=== PATIENT | female | born 1935 | race Caucasian/White ===

== ENCOUNTER 2019-04-20 19:22 | Emergency (ER) | payer MEDICARE ==
[~2019-04-20] VITALS: Ht 157 cm; Wt 54.0 kg
--- NOTE | 2019-04-20 19:34 | ED Lower Extremity ---
General Stated Complaint: FALL Source: patient, EMS Exam Limitations: no limitations History of Present Illness Date Seen by Provider: Apr 20, 2019 Time Seen by Provider: 19:25 Initial Comments The patient is a very pleasant 84-year-old female who presents for evaluation of left hip pain after a fall. She states that she tripped and fell while waiting for an elevator about 1-2 hrs ago. She states that she believes it is just strained and not broken. She arrives via EMS. She denies hitting her head or losing consciousness. She takes aspirin but no other blood thinners. She is alert, calm, and appears to be in no distress this time. Onset: this afternoon Severity: moderate Pain/Injury Location: left hip Method of Injury: fell Modifying Factors: Improves With Movement (makes it worse) Allergies and Home Medications Allergies Coded Allergies: No Known Allergies (Unverified Allergy, Mild, 07/01/05) Patient Home Medication List Home Medication List Reviewed: Yes Review of Systems Constitutional: no symptoms reported EENTM: no symptoms reported Respiratory: no symptoms reported Cardiovascular: no symptoms reported Gastrointestinal: no symptoms reported Genitourinary: no symptoms reported Musculoskeletal: joint pain (left hip) Skin: other (skin tear to left elbow) Psychiatric/Neurological: No Symptoms Reported All Other Systems Reviewed Negative Unless Noted: Yes Past Rvklirt-Qvtbsr-Eovobo Hx Past Med/Social Hx: Reviewed Nursing Past Med/Soc Hx Physical Exam Vital Signs Vital Signs - First Documented 04/20/19 19:25 Temp 36.5 Pulse 68 Resp 16 B/P (MAP) 134/69 (90) Pulse Ox 98 O2 Delivery Room Air Capillary Refill : Height, Weight, BMI Height: '" Weight: lbs. oz. kg; BMI Method: General Appearance: WD/WN, no apparent distress HEENT: PERRL/EOMI, pharynx normal Neck: non-tender, full range of motion, normal inspection Cardiovascular: regular rate, rhythm, no edema, no JVD Respiratory: lungs clear, normal breath sounds, no respiratory distress, no accessory muscle use Gastrointestinal: normal bowel sounds, non tender, soft Back: normal inspection, no vertebral tenderness Hips: right hip non-tender, right hip normal inspection, right hip normal range of motion; left hip limited range of motion (patient is able to lift the left leg off the bed and hold it there briefly), left hip soft tissue tenderness (left lateral hip) Knees: bilateral knee non-tender, bilateral knee normal inspection, bilateral knee normal range of motion Ankles: bilateral ankle non-tender, bilateral ankle normal inspection, bilateral ankle normal range of motion Neurologic/Psychiatric: interventional radiology tech II-XII nml as tested, alert, normal mood/affect, oriented x 3 Skin: normal color, warm/dry, other (mild skin tear to left elbow) Progress/Results/Core Measures Results/Orders My Orders Orders - MEENAKSHI SANTANA DO Pelvis With Left Hip 2-3 View (04/20/19 19:28) Dipht,Pertuss(Acell),Tet Adult (Boostrix (04/20/19 20:00) Vital Signs/I&O 04/20/19 19:25 Temp 36.5 Pulse 68 Resp 16 B/P (MAP) 134/69 (90) Pulse Ox 98 O2 Delivery Room Air Progress Progress Note : Progress Note @1999 - Patient updated on imaging results which are unremarkable. The patient states she is feeling better and is asking to go home. Advised the patient to follow up with her PCP in the next 1-2 days. Workup today fails to reveal any emergent pathology in the patient is stable for discharge home. Diagnostic Imaging Diagonstic Imaging: Xray Comments [facility]. POS [place], [place] POS NAME: ISIDORO BELTRAN [facility] REC#: [id number] PT STATUS: REG ER : 1935 PHYSICIAN: MEENAKSHI SANTANA DO ADMIT DATE: 04/20/19/ER FS Draft POSDate of Exam:04/20/19 PELVIS WITH LEFT HIP 2-3 VIEW EXAMINATION: Pelvis, single view. The left hip, 2 views. COMPARISON: None. HISTORY: 84-year-old female, fall. Back and left hip pain. FINDINGS: The pubic symphysis and sacroiliac joints are normally aligned. The right hip is not obviously dislocated. The left hip is not dislocated. There is no pronounced joint space loss of either hip. There is no identified acute fracture. There is lumbar levoscoliosis and advanced degenerative change of the lumbar spine. IMPRESSION: 1. No identified acute bony abnormality of the pelvis or left hip. Dictated on workstation # [id number] Dict: 04/20/191945 Trans: 04/20/191953 [facility] [id number] Interpreted by: ISMAEL COOLEY MD Electronically signed by: Departure Impression Primary Impression: Injury of left hip Disposition: HOME, SELF-CARE Condition: Stable Departure-Patient Inst. Decision time for Depature: 20:02 Referrals: AMBROSE BENNETT MD Patient Instructions: Hip Pain in Older People Add. Discharge Instructions: Take ibuprofen or Tylenol home for pain relief. Return to the Emergency Department immediately for new or worsening symptoms. Follow-up with your doctor or the orthopedic doctor provided in the next 1-2 days. MEENAKSHI SANTANA DO Apr 20, 2019 19:34 POS
--- NOTE | 2019-04-20 19:55 | Diagnostic Imaging Report ---
EXAMINATION: Pelvis, single view. The left hip, 2 views. COMPARISON: None. HISTORY: 84-year-old female, fall. Back and left hip pain. FINDINGS: The pubic symphysis and sacroiliac joints are normally aligned. The right hip is not obviously dislocated. The left hip is not dislocated. There is no pronounced joint space loss of either hip. There is no identified acute fracture. There is lumbar levoscoliosis and advanced degenerative change of the lumbar spine. IMPRESSION: 1. No identified acute bony abnormality of the pelvis or left hip. Dictated by: Dictated on workstation # [id number]
[2019-04-20] MEDS ORDERED: TETANUS,DIPTH,PERTUSS P/F (BOOSTRIX) 0.5 ML VIAL IM ONE (20:00)
[2019-04-20 21:15] VITALS: BP 127/65
== END 2019-04-20 21:15 | disposition home or self-care (01) ==
LOC: EDUNIT# 19:22 → ER FS 19:23
DX: S79.912A Unspecified injury of left hip, initial encounter (principal); W01.0XXA Fall on same level from slipping, tripping and stumbling without subsequent striking against object, initial encounter
CPT/HCPCS: 73502; 90471; 90715

== ENCOUNTER → 2020-02-24 | Outpatient (CLI) | payer MEDICARE ==
--- NOTE | 2020-02-24 16:27 | Diagnostic Imaging Report ---
EXAMINATION: Right hand radiographs, single view. Right thumb, 2 additional views. COMPARISON: None. HISTORY: 84-year-old female, fall. FINDINGS: There is an oblique mildly comminuted displaced fracture of the first proximal phalanx without definite intra-articular fracture extension. There is no identified offset of the articulating surface of the base of the first proximal phalanx. There is no identified radiopaque foreign body. There is subluxation at the second metacarpophalangeal joint. There is severe joint space loss of the second and third metacarpophalangeal joints. There is chondrocalcinosis. There is no particularly prominent osteophyte formation. There is no bone erosion. IMPRESSION: 1. Mildly comminuted displaced fracture of the first proximal phalanx without definite intra-articular fracture extension. 2. 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 Dictated by: Dictated on workstation # [id number]
== END ==
LOC: RAD FS 15:12
PROVIDERS: ATTEND Family Medicine
DX: S62.511A Displaced fracture of proximal phalanx of right thumb, initial encounter for closed fracture (principal); S63.210A Subluxation of metacarpophalangeal joint of right index finger, initial encounter; M19.041 Primary osteoarthritis, right hand; X58.XXXA Exposure to other specified factors, initial encounter
CPT/HCPCS: 73140

== ENCOUNTER 2020-02-25 15:09 | Emergency (ER) | payer MEDICARE ==
[~2020-02-25] VITALS: Ht 160 cm; Wt 56.7 kg
[2020-02-25 15:17] VITALS: BP 128/78
--- NOTE | 2020-02-25 15:22 | ED Upper Extremity ---
General Chief Complaint: Upper Extremity Stated Complaint: RT THUMB PAIN Source: patient Exam Limitations: no limitations History of Present Illness Date Seen by Provider: Feb 25, 2020 Time Seen by Provider: 15:10 Initial Comments The patient is a pleasant 84-year-old female who presents for evaluation of a right thumb injury. She is not exactly sure what happened to her thumb but believes that a week or 2 ago she fell and injured the thumb. She had outpatient x-rays performed yesterday which showed a mildly displaced thumb fracture. She has no other complaints and came here simply to have a splint put on the finger. She is not on any anticoagulants. She is alert and oriented 4, calm, and appears to be in no distress this time. She reports the pain as mild currently. Onset: last week Severity: moderate Pain/Injury Location: right thumb Method of Injury: fell Modifying Factors: Improves With Movement (makes it worse) Allergies and Home Medications Allergies Coded Allergies: No Known Allergies (Unverified Allergy, Mild, 07/01/05) Patient Home Medication List Home Medication List Reviewed: Yes Review of Systems Constitutional: no symptoms reported EENTM: no symptoms reported Respiratory: no symptoms reported Cardiovascular: no symptoms reported Gastrointestinal: no symptoms reported Genitourinary: no symptoms reported Musculoskeletal: joint pain (right thumb injury) Skin: no symptoms reported Psychiatric/Neurological: No Symptoms Reported All Other Systems Reviewed Negative Unless Noted: Yes Past Hqgfird-Fnsjti-Ukzukw Hx Past Med/Social Hx: Reviewed Nursing Past Med/Soc Hx Patient Social History 2nd Hand Smoke Exposure: No Recent Foreign Travel: No Contact w/Someone Who Travel: No Recent Hopitalizations: No Past Medical History Respiratory: No Cardiac: Yes High Cholesterol Neurological: Yes Dementia Genitourinary: No Gastrointestinal: No Musculoskeletal: No Endocrine: No HEENT: No Cancer: No Psychosocial: No Integumentary: No Blood Disorders: No Physical Exam Vital Signs Vital Signs - First Documented 02/25/20 15:17 Temp 36.7 Pulse 84 Resp 18 B/P (MAP) 128/78 (95) Pulse Ox 98 O2 Delivery Room Air Capillary Refill : Height, Weight, BMI Height: '" Weight: lbs. oz. kg; 21.00 BMI Method: General Appearance: WD/WN, no apparent distress HEENT: PERRL/EOMI, normal ENT inspection Neck: full range of motion, normal inspection Cardiovascular: regular rate, rhythm, no edema, no JVD Respiratory: lungs clear, normal breath sounds, no respiratory distress, no accessory muscle use Gastrointestinal: normal bowel sounds, non tender, soft, no pulsatile mass Back: no vertebral tenderness Shoulder: normal inspection, non-tender, no evidence of injury Elbow/Forearm: normal inspection, non-tender, no evidence of injury, normal ROM, Bilateral Wrist: Yes normal inspection, Yes non-tender, Yes no evidence of injury, Yes normal ROM Hand: bone tenderness (right thumb, no deformity noted, good cap refill, good distal sensation, no open wound), ecchymosis (right thumb) Neurologic/Tendon: normal sensation, normal motor functions, normal tendon functions, responds to pain Neurologic/Psychiatric: no motor/sensory deficits, alert, normal mood/affect, oriented x 3 Skin: normal color, warm/dry Progress/Results/Core Measures Results/Orders My Orders Orders - MEENAKSHI SANTANA DO Thumb Spika (02/25/20 15:31) Vital Signs/I&O 02/25/20 15:17 Temp 36.7 Pulse 84 Resp 18 B/P (MAP) 128/78 (95) Pulse Ox 98 O2 Delivery Room Air Progress Progress Note : Progress Note @1600 - x-ray reviewed showing mildly displaced proximal phalanx of the right hand. Thumb spica splint applied. Orthopedic follow-up given. Advised the patient to return to the emergency Department immediately for new or worsening symptoms. The patient stresses verbal understanding and agreement with plan and is stable for discharge. Diagnostic Imaging Diagonstic Imaging: Xray Comments [facility] [place], [place] NAME: ISIDORO BELTRAN [facility] REC#: [id number] PT STATUS: REG CLI : 1935 PHYSICIAN: MARK ANTHONY KULKARNI MD ADMIT DATE: 02/24/20/RAD FS Signed Date of Exam:02/24/20 FINGER(S) EXAMINATION: Right hand radiographs, single view. Right thumb, 2 additional views. COMPARISON: None. HISTORY: 84-year-old female, fall. FINDINGS: There is an oblique mildly comminuted displaced fracture of the first proximal phalanx without definite intra-articular fracture extension. There is no identified offset of the articulating surface of the base of the first proximal phalanx. There is no identified radiopaque foreign body. There is subluxation at the second metacarpophalangeal joint. There is severe joint space loss of the second and third metacarpophalangeal joints. There is chondrocalcinosis. There is no particularly prominent osteophyte formation. There is no bone erosion. IMPRESSION: 1. Mildly comminuted displaced fracture of the first proximal phalanx without definite intra-articular fracture extension. 2. 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 Dictated by: Dictated on workstation # [id number] Dict: 02/24/20 1615 Trans: 02/24/20 1633 CV [id number] Interpreted by: ISMAEL COOLEY MD Electronically signed by: ISMAEL COOLEY MD 02/24/20 1633 Departure Impression Primary Impression: Fracture of proximal phalanx of digit of right hand Disposition: HOME, SELF-CARE Condition: Stable Departure-Patient Inst. Decision time for Depature: 15:59 Referrals: AMBROSE BENNETT MD or Kory Bowie at [phone] (ortho) Patient Instructions: Finger Fracture Add. Discharge Instructions: Follow-up with Donald Bowie from orthopedics or Dr. Bennett orthopedics in the next 1-2 days. Return to the emergency Department immediately for new or worsening symptoms. Take Tylenol or ibuprofen for pain relief is needed and apply ice as needed. Wear the splint provided until you follow-up with orthopedics. MEENAKSHI SANTANA DO Feb 25, 2020 15:22
== END 2020-02-25 16:14 | disposition home or self-care (01) ==
LOC: EDUNIT# 15:09 → ER FS 15:11
DX: S62.511A Displaced fracture of proximal phalanx of right thumb, initial encounter for closed fracture (principal); W19.XXXA Unspecified fall, initial encounter
CPT/HCPCS: 99283

== ENCOUNTER → 2020-03-13 | Outpatient (CLI) | payer MEDICARE ==
--- NOTE | 2020-03-13 13:13 | Diagnostic Imaging Report ---
EXAMINATION: Right fingers at 11:41 AM. INDICATION: Thumb fracture. TECHNIQUE: A single AP view of the hand and two views of the 1st digit were obtained. FINDINGS: The prior exam of 02/24/2020 noted a mildly comminuted displaced fracture of the proximal phalanx of the thumb. That finding is again evident on this study. The main fracture fragments are similar in alignment to the prior study. There is little (if any) healing callus formation present, however. No other fracture or acute bony abnormality is appreciated. The degenerative changes involving the 1st metacarpophalangeal joint and the triscaphe joint seen previously are again evident and no different. Also, as on the prior exam, the osseous structures are demineralized. IMPRESSION: 1. The fracture of the base of the proximal phalanx seen previously is again evident. The main fracture fragments are essentially unchanged in alignment. There is little (if any) healing callus formation present. 2. There is no acute bony abnormality appreciated otherwise. Dictated by: Dictated on workstation # [id number]
== END ==
LOC: RAD FS 11:31
PROVIDERS: ATTEND Nurse Practitioner
DX: S62.511A Displaced fracture of proximal phalanx of right thumb, initial encounter for closed fracture (principal); X58.XXXA Exposure to other specified factors, initial encounter
CPT/HCPCS: 73140

== ENCOUNTER → 2020-04-03 | Outpatient (CLI) | payer MEDICARE ==
--- NOTE | 2020-04-03 12:31 | Diagnostic Imaging Report ---
INDICATION: Displaced fracture of proximal phalanx of right thumb. TECHNIQUE: Single view hand with two radiographs of right thumb, 10:23 AM. CORRELATION STUDY: 03/13/2020. FINDINGS: Demonstration of a comminuted displaced fracture involving the proximal phalanx of the thumb. Slight dorsal and radial displacement of the main distal fracture fragment is again demonstrated. The overall alignment is generally stable. There has been no appreciable interval healing of the fracture with the fracture line still well visualized. Alignment appears generally stable. Advanced degenerative changes through the interphalangeal joint of the thumb as well as through the remaining fingers. The distal phalangeal joint of the little finger is held in moderate flexure. Advanced degenerative change of the 1st carpometacarpal articulation. IMPRESSION: 1. Comminuted displaced fracture involving the proximal phalanx of the thumb. Alignment overall appears generally stable. There has been very little (if any) interval healing from prior study. Fracture line is still well visualized. Dictated by: Dictated on workstation # [id number]
== END ==
LOC: RAD FS 10:10
PROVIDERS: ATTEND Nurse Practitioner
DX: S62.511D Displaced fracture of proximal phalanx of right thumb, subsequent encounter for fracture with routine healing (principal); X58.XXXD Exposure to other specified factors, subsequent encounter
CPT/HCPCS: 73140

== ENCOUNTER → 2020-10-04 | Outpatient (CLI) | payer MEDICARE ==
[2020-10-04 10:03] LABS: COLOR,URINE YELLOW
[2020-10-04 10:04] LABS: BACTERIA,URINE NEGATIVE /HPF; BILIRUBIN,URINE NEGATIVE (NEGATIVE); CLARITY,URINE CLOUDY; GLUCOSE, URINE (UA) NEGATIVE (NEGATIVE); KETONES,URINE TRACE (NEGATIVE); LEUKOCYTE ESTERASE ,URINE NEGATIVE (NEGATIVE); NITRITE,URINE NEGATIVE (NEGATIVE); PH,URINE 6.5 (5-9); PROTEIN,URINE NEGATIVE (NEGATIVE); SQUAMOUS EPITHELIAL CELL,UR RARE /HPF
[2020-10-04 10:05] LABS: AMORPHOUS SEDIMENT,UR FEW AMOR URATES /LPF; CALCIUM OXALATE CRYSTALS,UR FEW /LPF; GRANULAR CASTS,URINE RARE /LPF
== END ==
LOC: PVFS 09:42
PROVIDERS: ATTEND Family Medicine
DX: R82.998 Other abnormal findings in urine (principal)
CPT/HCPCS: 81000

== ENCOUNTER → 2021-02-13 | Outpatient (CLI) | payer MEDICARE ==
[2021-02-13 17:56] LABS: BILIRUBIN,URINE NEGATIVE (NEGATIVE); CLARITY,URINE CLEAR; COLOR,URINE YELLOW; GLUCOSE, URINE (UA) NEGATIVE (NEGATIVE); KETONES,URINE NEGATIVE (NEGATIVE); LEUKOCYTE ESTERASE ,URINE NEGATIVE (NEGATIVE); NITRITE,URINE NEGATIVE (NEGATIVE); PROTEIN,URINE NEGATIVE (NEGATIVE)
[2021-02-13 18:05] LABS: BACTERIA,URINE NEGATIVE /HPF; RBC,URINE 0-2 /HPF; SQUAMOUS EPITHELIAL CELL,UR RARE /HPF; WBC,URINE RARE /HPF
== END ==
LOC: PVFS 17:29
PROVIDERS: ATTEND Family Medicine
DX: R39.9 Unspecified symptoms and signs involving the genitourinary system (principal); R44.3 Hallucinations, unspecified
CPT/HCPCS: 81000

== ENCOUNTER → 2021-04-25 | Outpatient (CLI) | payer MEDICARE ==
--- NOTE | 2021-04-25 13:35 | Diagnostic Imaging Report ---
INDICATION: Pain. Three views of the right ankle were obtained. FINDINGS: The bones are osteopenic. There are mild degenerative changes. The alignment is normal. The plafond and talar dome are intact. The ankle mortise is symmetric. There is no acute fracture or dislocation. The soft tissues are unremarkable. IMPRESSION: Osteopenia and degenerative change, otherwise unremarkable. Dictated by: Dictated on workstation # [id number]
== END ==
LOC: RAD FS 10:31
PROVIDERS: ATTEND Registered Nurse Emergency
DX: M19.071 Primary osteoarthritis, right ankle and foot (principal); M85.871 Other specified disorders of bone density and structure, right ankle and foot
CPT/HCPCS: 73610

== ENCOUNTER 2021-11-13 08:26 | Emergency (ER) | payer MEDICARE ==
[~2021-11-13] VITALS: Ht 160 cm; Wt 54.4 kg
[2021-11-13] MEDS ORDERED: PHENYLEPHRINE 0.25% NASAL SPR (NEO-SYNEPHRINE) 15 ML NS ONE (09:04)
--- NOTE | 2021-11-13 09:28 | ED EENT ---
History of Present Illness General Chief Complaint: Nasal Problems Stated Complaint: EPISTAXIS Nursing Triage Note: PT TO ROOM FS05 VIA [facility] WITH C/O NOSE BLEED. PT FACILITY PRESSURE WAS HELD FOR X25 MINUTES AND THE BLEEDING WOULD NOT STOP. Source: patient Exam Limitations: no limitations History of Present Illness Date Seen by Provider: Nov 13, 2021 Time Seen by Provider: 08:45 Initial Comments Patient is an 86-year-old female presents with spontaneous nosebleed starting prior to ED arrival. Patient was at facility that held pressure to the left nares for 25 minutes without nosebleed stopping prior to ED arrival. Patient takes daily baby aspirin but is not on anticoagulation therapy. No history of continuous bleeding or unexplained bruising denies dizziness lightheadedness, chest pain palpitation shortness of breath. No other symptoms or complaints. Timing/Duration: abrupt Severity: moderate Location: other Prearrival Treatment: other Modifying Factors: Improves With Other Associated Symptoms: other Allergies and Home Medications Allergies Coded Allergies: No Known Allergies (Unverified Allergy, Mild, 07/01/05) Patient Home Medication List Home Medication List Reviewed: Yes Review of Systems Review of Systems Constitutional: see HPI Eyes: See HPI Ears: See HPI Nose: see HPI Mouth: see HPI Throat: see HPI Past Kfizlyj-Quijiu-Owfcps Hx Patient Social History Tobacco Use?: No Smoking Status: Never a Smoker Smokeless Tobacco Frequency: Never a User Use of E-Cig and/or Vaping dev: No Use of E-Cig and/or Vaping Nghia: Never a User Substance use?: No Alcohol Use?: No Pt feels they are or have been: No Past Medical History Respiratory: No Cardiac: Yes High Cholesterol Neurological: Yes Dementia Genitourinary: No Gastrointestinal: No Musculoskeletal: No Endocrine: No HEENT: No Cancer: No Psychosocial: No Integumentary: No Blood Disorders: No Physical Exam Vital Signs Vital Signs - First Documented 11/13/21 08:26 Temp 35.6 Pulse 78 Resp 14 B/P (MAP) 158/84 (108) O2 Delivery Room Air Height, Weight, BMI Height: '" Weight: lbs. oz. kg; 21.00 BMI Method: General Appearance: WD/WN, no apparent distress Eyes: bilateral eye normal inspection, bilateral eye PERRL, bilateral eye EOMI Nose: other (Fresh abrasion left anterior inferior nasal septum. No active bleeding) Progress/Results/Core Measures Results/Orders My Orders Orders - JILLIAN PRO DO Phenylephrine 0.25% Nasal Spra (Anthony-Syne (11/13/21 09:04) Medications Given in ED Current Medications Medications Dose Ordered Sig/Ruiz Route Start Time Stop Time Status Last Admin Dose Admin Phenylephrine HCl 15 ml STK-MED ONCE NS 11/13/21 09:04 11/13/21 09:07 DC 11/13/21 09:06 15 ML Vital Signs/I&O 11/13/21 08:26 Temp 35.6 Pulse 78 Resp 14 B/P (MAP) 158/84 (108) O2 Delivery Room Air Blood Pressure Mean: 108 Departure Communication (Admissions) Nosebleed procedure note. Patient's nose stopped bleeding while in the ED. A fresh left anterior nasal septum abrasion was successfully cauterized with silver nitrate. Anthony-Synephrine nasal spray was used in both nostrils. Patient tolerated procedure well Nosebleed successfully treated in the emergency department. No lab or packing indicated at this time. Recommendations are for supportive care with ENT follow-up as needed. Impression Primary Impression: Left-sided epistaxis Disposition: 01 HOME, SELF-CARE Condition: Stable Departure-Patient Inst. Decision time for Depature: 09:28 Referrals: MARK ANTHONY KULKARNI MD (PCP) Primary Care Physician Patient Instructions: Nosebleeds Add. Discharge Instructions: You were evaluated in the emergency department for nosebleeds. Silver nitrate was successfully applied to your nasal septum. Please use 2 sprays of Anthony- Synephrine in each nostril twice daily for the next 3 days. Follow-up with your PCP and/or local ENT provider as needed. All discharge instructions reviewed with patient and/or family. Voiced understanding. JILLIAN PRO DO Nov 13, 2021 09:28
[2021-11-13 09:57] VITALS: BP 144/81
== END 2021-11-13 10:05 | disposition home or self-care (01) ==
LOC: EDUNIT# 08:26 → ER FS 08:29
DX: R04.0 Epistaxis (principal); Z79.82 Long term (current) use of aspirin
CPT/HCPCS: 99283

== ENCOUNTER → 2021-12-20 | Outpatient (CLI) | payer MEDICARE ==
[2021-12-20 17:11] LABS: BILIRUBIN,URINE NEGATIVE (NEGATIVE); CLARITY,URINE CLEAR; COLOR,URINE YELLOW; GLUCOSE, URINE (UA) NEGATIVE (NEGATIVE); KETONES,URINE NEGATIVE (NEGATIVE); LEUKOCYTE ESTERASE ,URINE NEGATIVE (NEGATIVE); NITRITE,URINE NEGATIVE (NEGATIVE); PROTEIN,URINE NEGATIVE (NEGATIVE)
[2021-12-20 17:18] LABS: BACTERIA,URINE NEGATIVE /HPF
== END ==
LOC: PVFS 16:45
PROVIDERS: ATTEND Family Medicine
DX: R82.90 Unspecified abnormal findings in urine (principal)
CPT/HCPCS: 81000

== ENCOUNTER → 2022-02-04 | Outpatient (CLI) | payer MEDICARE ==
[2022-02-04 20:53] LABS: BILIRUBIN,URINE NEGATIVE (NEGATIVE); CLARITY,URINE CLEAR; COLOR,URINE YELLOW; GLUCOSE, URINE (UA) NEGATIVE (NEGATIVE); KETONES,URINE TRACE (NEGATIVE); LEUKOCYTE ESTERASE ,URINE NEGATIVE (NEGATIVE); NITRITE,URINE NEGATIVE (NEGATIVE); PROTEIN,URINE NEGATIVE (NEGATIVE)
[2022-02-04 21:19] LABS: BACTERIA,URINE TRACE /HPF; SQUAMOUS EPITHELIAL CELL,UR 0-2 /HPF; WBC,URINE 0-2 /HPF
== END ==
LOC: PVFS 20:28
PROVIDERS: ATTEND Family Medicine
DX: R41.0 Disorientation, unspecified (principal); R82.998 Other abnormal findings in urine; W19.XXXA Unspecified fall, initial encounter
CPT/HCPCS: 81000

== ENCOUNTER 2022-02-11 18:49 | Emergency (ER) | payer MEDICARE ==
[~2022-02-11] VITALS: Ht 160 cm; Wt 79.3 kg
[2022-02-11 19:23] LABS: BASOPHILS % (AUTO) 0 % (0-10); EOSINOPHILS % (AUTO) 0 % (0-10); HEMATOCRIT 28 % (35-52); HEMOGLOBIN 9.5 g/dL (11.5-16.0); LYMPHOCYTES # (AUTO) 0.9 10^3/uL (1.0-4.0); LYMPHOCYTES % (AUTO) 20 % (12-44); MEAN CORPUSCULAR HEMOGLOBIN 35 pg (25-34); MEAN CORPUSCULAR HGB CONC 34 g/dL (32-36); MEAN CORPUSCULAR VOLUME 104 fL (80-99); MEAN PLATELET VOLUME 8.9 fL (9.0-12.2); MONOCYTES # (AUTO) 0.5 10^3/uL (0.0-1.0); MONOCYTES % (AUTO) 12 % (0-12); NEUTROPHILS % (AUTO) 68 % (42-75); PLATELET COUNT 162 10^3/uL (130-400); WHITE BLOOD COUNT 4.5 10^3/uL (4.3-11.0)
--- NOTE | 2022-02-11 19:38 | ED General ---
General Chief Complaint: General Problems/Pain Stated Complaint: AMS Nursing Triage Note: Pt sent from [facility] and nurse reports pt has had an increase in falls, generalized weakness and confusion. Pt Hgb was 8.4 recently. Pt denies any complaints. Hx of dementia and and pt is A&O to person, place, baseline per paperwork sent from [facility]. Source of Information: Patient Exam Limitations: No Limitations History of Present Illness Date Seen by Provider: Feb 11, 2022 Time Seen by Provider: 19:32 Initial Comments 86-year-old female presents from local [facility] via ambulance. Per nursing reports that she has fallen 5 times in the last 10 days. She does have bruising to her left lateral hip and has already had x-rays which were reportedly negative. No new injuries but staff reports that they think she is increasingly more confused today. She does have a history of dementia at baseline. She has no complaints upon arrival while she specifically denies any fevers chills chest pain abdominal pain or changes in bowel or bladder habits. She is alert and oriented upon my exam Allergies and Home Medications Allergies Coded Allergies: NKANo Known Allergies (Unverified Allergy, Mild, 07/01/05) Patient Home Medication List Home Medication List Reviewed: Yes Review of Systems Review of Systems Constitutional: no symptoms reported EENTM: no symptoms reported Respiratory: no symptoms reported Cardiovascular: no symptoms reported Gastrointestinal: no symptoms reported Genitourinary: no symptoms reported Musculoskeletal: no symptoms reported Skin: no symptoms reported Psychiatric/Neurological: No Symptoms Reported Hematologic/Lymphatic: No Symptoms Reported Immunological/Allergic: no symptoms reported Past Vmedkvy-Gurtyc-Hawfrw Hx Patient Social History Tobacco Use?: No Use of E-Cig and/or Vaping dev: No Substance use?: No Alcohol Use?: No Pt feels they are or have been: No Past Medical History Respiratory: No Cardiac: Yes High Cholesterol Neurological: Yes Dementia Genitourinary: No Gastrointestinal: No Musculoskeletal: No Endocrine: No HEENT: No Cancer: No Psychosocial: No Integumentary: No Blood Disorders: No Family Medical History Reviewed Nursing Family Hx No Pertinent Family Hx Physical Exam Vital Signs Vital Signs - First Documented 02/11/22 18:50 Temp 36.6 Pulse 78 Resp 15 B/P (MAP) 179/98 (125) Pulse Ox 96 O2 Delivery Room Air Capillary Refill : Less Than 3 Seconds Height, Weight, BMI Height: '" Weight: lbs. oz. kg; 30.00 BMI Method: General Appearance: No Apparent Distress, WD/WN HEENT: Normal ENT Inspection, Pharynx Normal Neck: Normal Inspection, Non Tender, Supple Respiratory: Chest Non Tender, Lungs Clear, Normal Breath Sounds, No Accessory Muscle Use, No Respiratory Distress Cardiovascular: Regular Rate, Rhythm, No Edema, No Gallop, No JVD, No Murmur, Normal Peripheral Pulses Gastrointestinal: Normal Bowel Sounds, No Organomegaly, No Pulsatile Mass, Non Tender, Soft Extremity: Normal Capillary Refill, Normal Inspection, Normal Range of Motion, Non Tender, No Calf Tenderness Neurologic/Psychiatric: Alert, Oriented x3 Skin: Normal Color, Warm/Dry Lymphatic: No Adenopathy Progress/Results/Core Measures Suspected Sepsis SIRS Temperature: Pulse: 78 Respiratory Rate: 15 Laboratory Tests 02/11/22 19:00: White Blood Count 4.5 Blood Pressure 179 /98 Mean: 125 Laboratory Tests 02/11/22 19:00: Creatinine 1.52H, Platelet Count 162, Total Bilirubin 0.3 Results/Orders Lab Results Laboratory Tests Test 02/11/22 19:00 02/11/22 19:49 Range/Units White Blood Count 4.5 4.3-11.0 10^3/uL Red Blood Count 2.71 L 3.80-5.11 10^6/uL Hemoglobin 9.5 L 11.5-16.0 g/dL Hematocrit 28 L 35-52 % Mean Corpuscular Volume 104 H 80-99 fL Mean Corpuscular Hemoglobin 35 H 25-34 pg Mean Corpuscular Hemoglobin Concent 34 32-36 g/dL Red Cell Distribution Width 13.3 10.0-14.5 % Platelet Count 162 130-400 10^3/uL Mean Platelet Volume 8.9 L 9.0-12.2 fL Immature Granulocyte % (Auto) 0 % Neutrophils (%) (Auto) 68 42-75 % Lymphocytes (%) (Auto) 20 12-44 % Monocytes (%) (Auto) 12 0-12 % Eosinophils (%) (Auto) 0 0-10 % Basophils (%) (Auto) 0 0-10 % Neutrophils # (Auto) 3.0 1.8-7.8 10^3/uL Lymphocytes # (Auto) 0.9 L 1.0-4.0 10^3/uL Monocytes # (Auto) 0.5 0.0-1.0 10^3/uL Eosinophils # (Auto) 0.0 0.0-0.3 10^3/uL Basophils # (Auto) 0.0 0.0-0.1 10^3/uL Immature Granulocyte # (Auto) 0.0 0.0-0.1 10^3/uL Sodium Level 145 135-145 MMOL/L Potassium Level 3.2 L 3.6-5.0 MMOL/L Chloride Level 101 98-107 MMOL/L Carbon Dioxide Level 35 H 21-32 MMOL/L Anion Gap 9 5-14 MMOL/L Blood Urea Nitrogen 16 7-18 MG/DL Creatinine 1.52 H 0.60-1.30 MG/DL Estimat Glomerular Filtration Rate 33 BUN/Creatinine Ratio 11 Glucose Level 120 H 70-105 MG/DL Calcium Level 13.7 *H 8.5-10.1 MG/DL Corrected Calcium 13.6 H 8.5-10.1 MG/DL Total Bilirubin 0.3 0.1-1.0 MG/DL Aspartate Amino Transf (AST/SGOT) 22 5-34 U/L Alanine Aminotransferase (ALT/SGPT) 14 0-55 U/L Alkaline Phosphatase 47 40-136 U/L Total Protein 6.9 6.4-8.2 GM/DL Albumin 4.1 3.2-4.5 GM/DL Urine Color YELLOW Urine Clarity SL CLOUDY Urine pH 7.0 5-9 Urine Specific [place] 1.015 L 1.016-1.022 Urine Protein NEGATIVE NEGATIVE Urine Glucose (UA) NEGATIVE NEGATIVE Urine Ketones NEGATIVE NEGATIVE Urine Nitrite NEGATIVE NEGATIVE Urine Bilirubin NEGATIVE NEGATIVE Urine Urobilinogen 0.2 < = 1.0 MG/DL Urine Leukocyte Esterase TRACE H NEGATIVE Urine RBC (Auto) NEGATIVE NEGATIVE Urine RBC NONE /HPF Urine WBC 5-10 H /HPF Urine Squamous Epithelial Cells 2-5 /HPF Urine Crystals PRESENT H /LPF Urine Amorphous Sediment FEW SILVANA URATES H /LPF Urine Bacteria NEGATIVE /HPF Urine Casts NONE /LPF Urine Hyaline Casts 2-5 H /LPF Urine Granular Casts 2-5 H /LPF Urine White Blood Cell Casts 0-2 H /LPF Urine Mucus NEGATIVE /LPF Urine Culture Indicated YES My Orders Orders - MARTI LEDESMA DO Cbc With Automated Diff (02/11/22 19:11) Comprehensive Metabolic Panel (02/11/22 19:11) Ua Culture If Indicated (02/11/22 19:11) Urine Culture (02/11/22 19:49) Ns Iv 1000 Ml (Sodium Chloride 0.9%) (02/11/22 20:15) Vital Signs/I&O 02/11/22 02/11/22 18:50 19:45 Temp 36.6 Pulse 78 70 Resp 15 15 B/P (MAP) 179/98 (125) 156/86 (109) Pulse Ox 96 97 O2 Delivery Room Air Room Air Capillary Refill : Less Than 3 Seconds Blood Pressure Mean: 125 Departure Communication (Admissions) Patient is hemodynamically stable. She is hypercalcemic. Unable to do an ionized calcium here. Regardless she is given IV fluids here and recommended to increase her fluids at the nursing facility. Recommend recheck of her calcium in the next couple of days, sooner should her symptoms worsen. She is discharged in stable condition. She is alert and oriented completely on my exam and has no specific complaints at all. Impression Primary Impression: Hypercalcemia Disposition: 01 HOME, SELF-CARE Condition: Stable Departure-Patient Inst. Referrals: MARK ANTHONY KULKARNI MD (PCP/Family) Primary Care Physician Patient Instructions: Hypercalcemia (DC) Add. Discharge Instructions: Please increase your fluids. Have your calcium rechecked in the next day or 2. Return to the emergency department for any severe concerns. All discharge instructions reviewed with patient and/or family. Voiced understanding. MARTI LEDESMA DO Feb 11, 2022 19:37
[2022-02-11 19:46] LABS: BILIRUBIN,TOTAL 0.3 MG/DL (0.1-1.0); CREATININE SERUM 1.52 MG/DL (0.60-1.30); POTASSIUM 3.2 MMOL/L (3.6-5.0)
[2022-02-11 19:47] LABS: ALBUMIN 4.1 GM/DL (3.2-4.5); TOTAL PROTEIN 6.9 GM/DL (6.4-8.2)
[2022-02-11 19:49] LABS: CALCIUM 13.7 MG/DL (8.5-10.1)
[2022-02-11 20:01] LABS: BILIRUBIN,URINE NEGATIVE (NEGATIVE); CLARITY,URINE SL CLOUDY; COLOR,URINE YELLOW; GLUCOSE, URINE (UA) NEGATIVE (NEGATIVE); KETONES,URINE NEGATIVE (NEGATIVE); LEUKOCYTE ESTERASE ,URINE TRACE (NEGATIVE); NITRITE,URINE NEGATIVE (NEGATIVE); PROTEIN,URINE NEGATIVE (NEGATIVE)
[2022-02-11 20:07] LABS: AMORPHOUS SEDIMENT,UR FEW AMOR URATES /LPF; BACTERIA,URINE NEGATIVE /HPF; WHITE BLOOD CELL CASTS, URINE 0-2 /LPF
[2022-02-11] MEDS ORDERED: NS IV 1000 ML 500 ML IV SCH (20:15)
[2022-02-11 21:30] VITALS: BP 164/69
== END 2022-02-11 21:30 | disposition home or self-care (01) ==
LOC: EDUNIT# 18:49 → ER FS 18:50
DX: E83.52 Hypercalcemia (principal); F03.90 Unspecified dementia, unspecified severity, without behavioral disturbance, psychotic disturbance, mood disturbance, and anxiety
CPT/HCPCS: 36415; 80053; 81000; 85025; 87088

== ENCOUNTER → 2022-02-11 | Outpatient (CLI) | payer MEDICARE ==
--- NOTE | 2022-02-11 15:14 | Diagnostic Imaging Report ---
INDICATION: Knee pain. 3 views were obtained FINDINGS: There is some 3 compartment osteoarthritic change. No fracture or dislocation. Soft tissues are unremarkable. There is no joint effusion. IMPRESSION: Mild 3 compartment osteoarthritic change, otherwise unremarkable. Dictated by: Dictated on workstation # [id number]
--- NOTE | 2022-02-11 17:43 | Diagnostic Imaging Report ---
INDICATION: Left hip pain. FINDINGS: Two views. Femoral head is in normal articulation with the acetabulum. There is mild narrowing of the joint space. Mild sclerotic changes along the acetabular rim. Femoral head shows smooth articulating surface. No fractures are seen. No evidence of osteonecrosis. There are a few small calcifications in the soft tissues adjacent to the greater trochanter, consistent with some calcific tenosynovitis or bursitis. IMPRESSION: Mild arthritic changes noted of the left hip. Dictated by: Dictated on workstation # [id number]
== END ==
LOC: RAD FS 14:30
PROVIDERS: ATTEND Registered Nurse Emergency
DX: M16.12 Unilateral primary osteoarthritis, left hip (principal); M17.12 Unilateral primary osteoarthritis, left knee
CPT/HCPCS: 73502; 73562

== ENCOUNTER → 2022-02-11 | Outpatient (CLI) | payer MEDICARE | PROVIDERS: ATTEND Family Medicine | DX: D64.9 Anemia, unspecified (principal) | CPT/HCPCS: 82274 ==

== ENCOUNTER → 2022-05-09 | Outpatient (CLI) | payer MEDICARE ==
[2022-05-09 19:40] LABS: BILIRUBIN,URINE NEGATIVE (NEGATIVE); CLARITY,URINE SL CLOUDY; COLOR,URINE YELLOW; GLUCOSE, URINE (UA) NEGATIVE (NEGATIVE); KETONES,URINE TRACE (NEGATIVE); LEUKOCYTE ESTERASE ,URINE NEGATIVE (NEGATIVE); NITRITE,URINE NEGATIVE (NEGATIVE); PROTEIN,URINE NEGATIVE (NEGATIVE)
[2022-05-09 19:46] LABS: BACTERIA,URINE NEGATIVE /HPF; CALCIUM OXALATE CRYSTALS,UR MODERATE /LPF; SQUAMOUS EPITHELIAL CELL,UR 0-2 /HPF; WBC,URINE 0-2 /HPF
== END ==
LOC: LAB FS 19:30
PROVIDERS: ATTEND Family Medicine
DX: R82.998 Other abnormal findings in urine (principal)
CPT/HCPCS: 81000

== ENCOUNTER → 2022-05-29 | Outpatient (CLI) | payer MEDICARE ==
[2022-05-29 14:44] LABS: BILIRUBIN,URINE NEGATIVE (NEGATIVE); CLARITY,URINE CLEAR; COLOR,URINE YELLOW; GLUCOSE, URINE (UA) NEGATIVE (NEGATIVE); KETONES,URINE TRACE (NEGATIVE); LEUKOCYTE ESTERASE ,URINE NEGATIVE (NEGATIVE); NITRITE,URINE NEGATIVE (NEGATIVE); PH,URINE 5.5 (5-9); PROTEIN,URINE NEGATIVE (NEGATIVE)
[2022-05-29 14:53] LABS: BACTERIA,URINE TRACE /HPF; CALCIUM OXALATE CRYSTALS,UR FEW /LPF; WBC,URINE 0-2 /HPF
== END ==
LOC: PVFS 14:34
PROVIDERS: ATTEND Family Medicine
DX: R35.0 Frequency of micturition (principal)
CPT/HCPCS: 81000

== ENCOUNTER → 2022-08-01 | Outpatient (CLI) | payer MEDICARE ==
[2022-08-01 09:51] LABS: BILIRUBIN,URINE NEGATIVE (NEGATIVE); CLARITY,URINE SL CLOUDY; COLOR,URINE YELLOW; GLUCOSE, URINE (UA) NEGATIVE (NEGATIVE); KETONES,URINE NEGATIVE (NEGATIVE); LEUKOCYTE ESTERASE ,URINE NEGATIVE (NEGATIVE); NITRITE,URINE NEGATIVE (NEGATIVE); PH,URINE 6.5 (5-9); PROTEIN,URINE NEGATIVE (NEGATIVE)
[2022-08-01 09:57] LABS: BACTERIA,URINE NEGATIVE /HPF; CALCIUM OXALATE CRYSTALS,UR FEW /LPF; URINE OTHER CLUE CELLS /HPF
== END ==
LOC: LABNPT 09:30
PROVIDERS: ATTEND Family Medicine
DX: R29.6 Repeated falls (principal); R53.83 Other fatigue
CPT/HCPCS: 81000